=== PATIENT | female | born 1955 | race Caucasian/White ===

== ENCOUNTER → 2020-03-30 | Outpatient (CLI) | payer BC ==
--- NOTE | 2020-03-30 11:39 | US ---
EXAMINATION TYPE: US abdomen complete DATE OF EXAM: 03/30/2020 COMPARISON: NONE CLINICAL HISTORY: R10.84 ABDOMINAL PAIN. Abdomen pain, elevated liver enzymes, history of cholecystec malu EXAM MEASUREMENTS: Liver Length: 14.2 cm CBD: 0.4 cm Spleen: 9.7 cm Right Kidney: 9.7 x 4.9 x 4.2 cm Left Kidney: 10.3 x 5.1 x 4.4 cm Pancreas: visualized portions wnl, limited by overlying midline bowel gas Liver: mildly course echotexture Gallbladder: surgically absent Evidence for sonographic Collins's sign: no CBD: visualized portions wnl, limited by overlying bowel gas Spleen: wnl Right Kidney: wnl Left Kidney: wnl Upper IVC: wnl Abd Aorta: wnl The liver is mildly coarse. The intrahepatic portion of the IVC and proximal abdominal aorta are with in normal limits. Common bile duct is unremarkable. The visualized portions of the pancreas are steph ogenous. The spleen is unremarkable. Kidneys are symmetric and free of hydronephrosis. No renal le sions are seen. IMPRESSION: Mild hepatic steatosis suggested.
== END | disposition home or self-care (01) ==
LOC: RADUSWWP 10:33
PROVIDERS: ATTEND Internal Medicine
DX: R10.84 Generalized abdominal pain (principal); R94.5 Abnormal results of liver function studies
CPT/HCPCS: 76700

== ENCOUNTER 2021-06-10 09:59 | Day surgery (SDC) | payer BC ==
[2021-06-06 10:43] VITALS: BMI 28.7
[~2021-06-10 09:59] MED LIST: LACTATED RINGERS 1,000 ML IV SCH
[2021-06-10 10:30] VITALS: TEMP 98.4
[2021-06-10] MEDS ORDERED: LIDOCAINE 1% (10MG/ML) FOR IV START INTRADERMA ONE (10:38)
[2021-06-10] MEDS ORDERED: PROPOFOL 10 MG/ML 20 ML VIAL IV ONE (11:33)
--- NOTE | 2021-06-10 11:35 | P.GSHP ---
History of Present Illness H&P Date: 06/10/21 Chief Complaint: Screening colonoscopy This is 66-year-old female presents today for screening colonoscopy. Patient denies any significant GI complaints. Past Medical History Past Medical History: No Reported History History of Any Multi-Drug Resistant Organisms: None Reported Past Surgical History: Section, Cholecystectomy, Hysterectomy Additional Past Surgical History / Comment(s): COLONOSCOPY Past Anesthesia/Blood Transfusion Reactions: Postoperative Nausea & Vomiting (PONV) Smoking Status: Never smoker - Past Family History Mother Family Medical History: Cancer Brother(s) Family Medical History: Cancer Medications and Allergies Home Medications Medication Instructions Recorded Confirmed Type Omeprazole 20 mg PO DAILY 06/10/21 06/10/21 History Allergies Allergy/AdvReac Type Severity Reaction Status Date / Time No Known Allergies Allergy Verified 06/10/21 10:21 Surgical - Exam Vital Signs Temp Pulse Resp BP Pulse Ox 98.4 F 57 L 16 158/87 99 06/10/21 10:20 06/10/21 10:20 06/10/21 10:20 06/10/21 10:20 06/10/21 10:20 - General well developed, well nourished, no distress - Eyes PERRL - ENT normal pinna - Neck no masses - Respiratory normal expansion - Cardiovascular Rhythm: regular - Abdomen Abdomen: soft, non tender Assessment and Plan Assessment: We'll perform screening colonoscopy
--- NOTE | 2021-06-10 11:55 | P.OP ---
Date of Procedure: 06/10/21 Preoperative Diagnosis: Screening colonoscopy Postoperative Diagnosis: Diverticulosis Procedure(s) Performed: Colonoscopy Anesthesia: MAC Surgeon: Rafael Saldaña Pathology: none sent Condition: stable Disposition: PACU Description of Procedure: The patient's placed on the endoscopy table in the lateral position. She received IV sedation. Digital rectal exam was performed which revealed a few external hemorrhoids. The flexible colonoscope was then placed patient anus passed throughout the entire colon. The ileocecal valve was visualized. The cecum, ascending and transverse colon appeared normal. In the descending; there is mild diverticular changes. There was no evidence of diverticulitis. Scope was then brought back the rectum and this appeared normal. Scope withdrawn for patient.
[2021-06-10 12:14] VITALS: BP 163/75; PULSE 91; RESP 16
== END 2021-06-10 12:37 | disposition home or self-care (01) ==
LOC: ORWHC2ENDO 09:59
PROVIDERS: ATTEND Surgery
DX: Z12.11 Encounter for screening for malignant neoplasm of colon (principal); K57.30 Diverticulosis of large intestine without perforation or abscess without bleeding; K64.4 Residual hemorrhoidal skin tags; Z98.891 History of uterine scar from previous surgery; Z90.49 Acquired absence of other specified parts of digestive tract; Z90.710 Acquired absence of both cervix and uterus; Z98.890 Other specified postprocedural states; Z79.899 Other long term (current) drug therapy; K21.9 Gastro-esophageal reflux disease without esophagitis
CPT/HCPCS: J2704; G0121

== ENCOUNTER → 2021-08-14 | Outpatient (CLI) | payer BC ==
--- NOTE | 2021-08-14 20:46 | BD ---
EXAMINATION TYPE: Axial Bone Density DATE OF EXAM: 08/14/2021 COMPARISON: FIRST DEXA AT [facility] CLINICAL HISTORY: 66 years year old Female. ICD-10 CODE: Z78.0 Asymptomatic menopausal state Height: 59.5IN Weight: 147 FRAX RISK QUESTIONS: Secondary Osteoporosis: YES 3. Menopause before 45: YES RISK FACTORS HISTORY OF: Postmenopausal woman: YES MEDICATIONS: Additional Medications: REFLUX MED, Additional History: EXAM MEASUREMENTS: Bone mineral densitometry was performed using the Karmasphere System. Bone mineral density as measured about the Lumbar spine is: ----- L1-L4(G/cm2): 1.239 T Score Values are as follows: ----- L1: -0.6 ----- L2: 0.6 ----- L3: 0.6 ----- L4: 1.0 ----- L1-L4: 0.5 NEW Bone mineral density about the R hip (g/cm2): 0.842 Bone mineral density about the L hip (g/cm2): 0.836 T Score values are as follows: -----R Neck: -1.5 -----L Neck: -1.5 -----R Total: -1.3 -----L Total: -1.4 NEW FRAX%s: The graph provided illustrates a 8.7% chance for a major osteoporotic fx and a 0.9% chance fo r the hips probability for fx in 10 years time. IMPRESSION: Osteopenia (T Score between -2.5 and -1). There is slightly increased risk of fracture and the patient may be considered for treatment. Re-Screen 2-5 years. NOTE: T-SCORE=SD OF THE YOUNG ADULT MEAN.
--- NOTE | 2021-08-15 11:30 | MM ---
Reason for Exam: Screening (asymptomatic). Patient History: Menarche at age 15. First Full-Term at age 24. Hysterectomy at age 38. Postmenopausal. Niece had breast cancer. Risk Values: Marielena 5 year model risk: 1.4%. NCI Lifetime model risk: 5.8%. Prior Study Comparison: No prior studies available for comparison. Tissue Density: The breast tissue is heterogeneously dense. This may lower the sensitivity of mammography. Findings: Analyzed By CAD. There is suggestion of possible obscured near 2.0 cm mass in the posterior depth outer upper aspect left breast on background dense tissue. Follow-up advised. Overall Assessment: Incomplete: need additional imaging evaluation, BI-RAD 0 Management: Diagnostic Breast Ultrasound of the left breast. Targeted ultrasound left breast upper outer quadrant C Zone. Electronically signed and approved by: Froy Dotson M.D.
== END | disposition home or self-care (01) ==
LOC: RADMAMWWP 07:03
PROVIDERS: ATTEND Family Medicine
DX: Z12.31 Encounter for screening mammogram for malignant neoplasm of breast (principal); Z78.0 Asymptomatic menopausal state; M85.89 Other specified disorders of bone density and structure, multiple sites
CPT/HCPCS: 77067; 77080

== ENCOUNTER → 2021-08-22 | Outpatient (CLI) | payer BC ==
--- NOTE | 2021-08-22 08:00 | USB ---
Reason for Exam: Additional evaluation requested from abnormal screening. Patient History: Menarche at age 15. First Full-Term at age 24. Hysterectomy at age 38. Postmenopausal. Niece had breast cancer. Risk Values: Marielena 5 year model risk: 1.4%. NCI Lifetime model risk: 5.8%. Prior Study Comparison: 08/14/2021 Bilateral MG screening mammo w CAD, [facility]. Findings: The upper outer quadrant of the left breast, the axilla of the left breast and the retroareolar of the left breast were scanned. No solid or cystic masses are identified. Left axillary lymph node is identified without thickened cortex. Overall Assessment: Negative, BI-RAD 1 Management: Diagnostic Mammogram of the left breast in 6 months. A clinical breast exam by your physician is recommended on an annual basis and results should be correlated with mammographic findings. Electronically signed and approved by: Armando Pulido D.O. Radiologis
== END | disposition home or self-care (01) ==
LOC: RADUSWWP 07:11
PROVIDERS: ATTEND Family Medicine
DX: R92.8 Other abnormal and inconclusive findings on diagnostic imaging of breast (principal); Z78.0 Asymptomatic menopausal state; Z80.3 Family history of malignant neoplasm of breast

== ENCOUNTER 2022-08-14 15:46 | Observation (INO) | payer BC, MEDICARE ==
[2022-08-14 16:19] LABS: Basophils % (A) 0 %; Eosinophils # (A) 0.1 k/uL (0-0.7); Eosinophils % (A) 2 %; HCT 41.3 % (34.0-46.0); HGB 13.9 gm/dL (11.4-16.0); Lymphocytes # (A) 2.3 k/uL (1.0-4.8); Lymphocytes % (A) 31 %; MCH 31.8 pg (25.0-35.0); MCHC 33.6 g/dL (31.0-37.0); MCV 94.8 fL (80.0-100.0); Monocytes # (A) 0.4 k/uL (0-1.0); Monocytes % (A) 5 %; Neutrophils # (A) 4.5 k/uL (1.3-7.7); Neutrophils % (A) 61 %; Platelet Count 333 k/uL (150-450); RBC 4.36 m/uL (3.80-5.40); RDW 12.6 % (11.5-15.5); WBC 7.3 k/uL (3.8-10.6)
[2022-08-14 16:31] LABS: ALT 24 U/L (4-34); AST 25 U/L (14-36); African American GFR (CKD) 81 (>60 ml/min/1.73 sqM); Albumin 4.4 g/dL (3.5-5.0); Alkaline Phosphatase 82 U/L (38-126); Anion Gap 8 mmol/L; Blood Urea Nitrogen 16 mg/dL (7-17); Calcium 9.6 mg/dL (8.4-10.2); Carbon Dioxide 25 mmol/L (22-30); Chloride 104 mmol/L (98-107); Glucose 94 mg/dL (74-99); Magnesium 1.8 mg/dL (1.6-2.3); Non-African American GFR(CKD) 70 (>60 ml/min/1.73 sqM); Potassium 3.8 mmol/L (3.5-5.1); Sodium 137 mmol/L (137-145); Total Bilirubin 0.5 mg/dL (0.2-1.3); Total Protein 7.2 g/dL (6.3-8.2)
--- NOTE | 2022-08-14 16:37 | ED ---
General Adult HPI - General Chief complaint: Recheck/Abnormal Lab/Rx Stated complaint: abn EKG high blood pressure Time Seen by Provider: 08/14/22 15:55 Source: patient, RN notes reviewed, old records reviewed Mode of arrival: ambulatory Limitations: no limitations - History of Present Illness Initial comments: This is a 67-year-old female presents emergency Department because she went to her dentist today and the dentist told her blood pressure is high and they told to follow-up to primary medical care doctor they saw the primary medical care doctor and they decided because of high blood pressure and they did an EKG while the patient come to the emergency department. Patient states she has been having shortness of breath last few months and she states it's usually with exertion and she finishes because she's gained about 25 pounds in the last 6 months. Patient also states she retired recently and has been doing some walking and noticed her breath and sharp patient states she occasionally will have some sharp pain underneath her ribs bilaterally. Patient denies any recent fever chills or cough per patient states want to legs or pain in the calf. Patient denies taking any medications. Patient denies any anterior chest pain. Patient denies any back pain. Patient denies any history of diabetes hypertension or high cholesterol. Patient denies any smoking history - Related Data Home Medications Medication Instructions Recorded Confirmed Omeprazole 20 mg PO DAILY 06/10/21 08/14/22 Cholecalciferol [Vitamin D3 (25 25 mcg PO DAILY 08/14/22 08/14/22 Mcg = 1000 Iu)] Cyanocobalamin (Vitamin B-12) 1,000 mcg PO DAILY 08/14/22 08/14/22 [Vitamin B-12] Allergies Allergy/AdvReac Type Severity Reaction Status Date / Time No Known Allergies Allergy Verified 08/14/22 17:50 Review of Systems ROS Statement: Those systems with pertinent positive or pertinent negative responses have been documented in the HPI. ROS Other: All systems not noted in ROS Statement are negative. Past Medical History Past Medical History: No Reported History History of Any Multi-Drug Resistant Organisms: None Reported Past Surgical History: Section, Cholecystectomy, Hysterectomy Additional Past Surgical History / Comment(s): COLONOSCOPY Past Anesthesia/Blood Transfusion Reactions: Postoperative Nausea & Vomiting (PONV) Past Psychological History: No Psychological Hx Reported Smoking Status: Never smoker Past Alcohol Use History: Occasional Past Drug Use History: None Reported - Past Family History Mother Family Medical History: Cancer Brother(s) Family Medical History: Cancer General Exam - General Exam Comments Initial Comments: GENERAL: Patient is well-developed and well-nourished. Patient is nontoxic and well- hydrated and is in no acute distress. ENT: Neck is soft and supple. No significant lymphadenopathy is noted. Oropharynx is clear. Moist mucous membranes. Neck has full range of motion without eliciting any pain. EYES: The sclera were anicteric and conjunctiva were pink and moist. Extraocular movements were intact and pupils were equal round and reactive to light. Eyelids were unremarkable. PULMONARY: Unlabored respirations. Good breath sounds bilaterally. No audible rales rhonchi or wheezing was noted. CARDIOVASCULAR: There is a regular rate and rhythm without any murmurs gallops or rubs. ABDOMEN: Soft and nontender with normal bowel sounds. SKIN: Skin is clear with no lesions or rashes and otherwise unremarkable. NEUROLOGIC: Patient is alert and oriented x3. Cranial nerves II through XII are grossly intact. Motor and sensory are also intact. Normal speech, volume and content. Symmetrical smile. MUSCULOSKELETAL: Normal extremities with adequate strength and full range of motion. No lower extremity swelling or edema. No calf tenderness. LYMPHATICS: No significant lymphadenopathy is noted PSYCHIATRIC: Normal psychiatric evaluation. Limitations: no limitations Course Vital Signs 08/14/22 08/14/22 08/14/22 15:47 16:41 17:47 Temperature 98.2 F 98.7 F Pulse Rate 81 86 96 Respiratory 20 18 18 Rate Blood Pressure 190/123 196/109 196/127 O2 Sat by Pulse 98 96 96 Oximetry 08/14/22 08/14/22 08/14/22 18:07 18:30 19:00 Temperature Pulse Rate 80 100 90 Respiratory 17 19 19 Rate Blood Pressure 153/105 133/84 135/84 O2 Sat by Pulse 97 97 98 Oximetry 08/14/22 08/14/22 08/14/22 19:30 20:05 20:17 Temperature 98.6 F Pulse Rate 118 H 104 H 106 H Respiratory 22 16 Rate Blood Pressure 177/101 146/88 O2 Sat by Pulse 99 96 Oximetry 08/14/22 20:54 Temperature Pulse Rate 115 H Respiratory 18 Rate Blood Pressure 165/96 O2 Sat by Pulse 96 Oximetry Medical Decision Making - Medical Decision Making EKG was interpreted by myself. EKG shows sinus rhythm at 87 bpm SC interval Is a 70 QRS Is 94 QT Interval 345 QTC Is 389. Patient's EKG Shows No ST Segment Elevation A repeat EKG was done shows sinus rhythm at 92 bpm SC interval 142 QRS is 86 QT interval 356 QTC is 45. Patient has multiple PACs. No ST segment elevation Was pt. sent in by a medical professional or institution (, PA, CABLE WORKER HELPER, urgent care, hospital, or custodial...) When possible be specific @ -Patient was sent in by her primary medical care doctor Did you speak to anyone other than the patient for history (EMS, parent, family, police, friend...)? What history was obtained from this source @ -[No] Did you review nursing and triage notes (agree or disagree)? Why? @ -[I reviewed and agree with nursing and triage notes] Were old charts reviewed (outside hosp., previous admission, EMS record, old EKG, old radiological studies, urgent care reports/EKG's, custodial records)? Report findings @ -I reviewed prior x-rays on this patient Differential Diagnosis (chest pain, altered mental status, abdominal pain women, abdominal pain men, vaginal bleeding, weakness, fever, dyspnea, syncope, headache, dizziness, GI bleed, back pain, seizure, CVA, palpatations, mental health, musculoskeletal)? @ -Differential Dyspnea: Coronary syndrome, arrhythmia, tamponade, asthma, COPD, pulmonary embolism, pneumonia, pneumothorax, pulmonary effusion, anaphylaxis, diabetic ketoacidosis, flailed chest, pulmonary contusion, diaphragmatic rupture, anemia, neuromuscular, this is not meant to be an all-inclusive list. EKG interpreted by me (3pts min.). @ -[As above] X-rays interpreted by me (1pt min.). @ -Chest x-ray shows no acute abnormality CT interpreted by me (1pt min.). @ -CT of the chest shows no PE but does show some calcifications in the coronary arteries U/S interpreted by me (1pt. min.). @ -[None done] What testing was considered but not performed or refused? (CT, X-rays, U/S, labs)? Why? @ -[None] What meds were considered but not given or refused? Why? @ -[None] Did you discuss the management of the patient with other professionals (professionals i.e. , PA, CABLE WORKER HELPER, lab, RT, psych nurse, health care social worker, rivet hole puncher, teacher, deck officer, case sealer)? Give summary @ -I spoke with Dr. Castellon he agreed to admit the patient admitted the patient Was smoking cessation discussed for >3mins.? @ -[No] Was critical care preformed (if so, how long)? @ -[No] Were there social determinants of health that impacted care today? How? (Homelessness, low income, unemployed, alcoholism, drug addiction, transportation, low edu. Level, literacy, decrease access to med. care, half-way, rehab)? @ -[No] Was there de-escalation of care discussed even if they declined (Discuss DNR or withdrawal of care, Hospice)? DNR status @ -[No] What co-morbidities impacted this encounter? (DM, HTN, Smoking, COPD, CAD, Cancer, CVA, ARF, Chemo, Hep., AIDS, mental health diagnosis, sleep apnea, morbid obesity)? @ -[None] Was patient admitted / discharged? Hospital course, mention meds given and route, prescriptions, significant lab abnormalities, going to OR and other pertinent info. @ -Patient was seen in emergency department given hydralazine and apart her blood pressure down however any time the patient got up out of bed and walked more than 5 feet she was flushed red tachycardic in the 120s and her blood pressure elevated. Patient also felt very short of breath with these episodes and it occurred multiple times in the emergency department was at this point in time that I felt something else might be going on that she needed to see global clinical leader and veterinary poultry inspector Dr. Castellon was in agreement I admitted the patient Undiagnosed new problem with uncertain prognosis? @ -[No] Drug Therapy requiring intensive monitoring for toxicity (Heparin, Nitro, Insulin, Cardizem)? @ -[No] Were any procedures done? @ -[No] Diagnosis/symptom? @ -Dyspnea Acute, or Chronic, or Acute on Chronic? @ -Acute Uncomplicated (without systemic symptoms) or Complicated (systemic symptoms)? @ -Complicated Side effects of treatment? @ -[No] Exacerbation, Progression, or Severe Exacerbation? @ -[No] Poses a threat to life or bodily function? How? (Chest pain, [place], [place], pneumonia, PE, COPD, DKA, ARF, appy, cholecystitis, CVA, Diverticulitis, Homicidal, Suicidal, threat to staff... and all critical care pts) @ -Yes this could lead to hypoxia and end organ dysfunction Diagnosis/symptom? @ -Tachycardia Acute, or Chronic, or Acute on Chronic? @ -Acute Uncomplicated (without systemic symptoms) or Complicated (systemic symptoms)? @ -Complicated Side effects of treatment? @ -[none] Exacerbation, Progression, or Severe Exacerbation] @ -[no] Poses a threat to life or bodily function? @ -[no] Diagnosis/symptom? @ -Hypertension Acute, or Chronic, or Acute on Chronic? @ -Acute Uncomplicated (without systemic symptoms) or Complicated (systemic symptoms)? @ -Complicated Side effects of treatment? @ -[none] Exacerbation, Progression, or Severe Exacerbation] @ -[no] Poses a threat to life or bodily function? @ -Yes this could lead to a hypertensive crisis and morbidity or mortality - Lab Data Result diagrams: 08/14/22 16:14 08/14/22 16:14 Lab Results 08/14/22 08/14/22 08/14/22 Range/Units 16:14 16:14 16:14 WBC 7.3 (3.8-10.6) k/uL RBC 4.36 (3.80-5.40) m/uL Hgb 13.9 (11.4-16.0) gm/dL Hct 41.3 (34.0-46.0) % MCV 94.8 (80.0-100.0) fL MCH 31.8 (25.0-35.0) pg MCHC 33.6 (31.0-37.0) g/dL RDW 12.6 (11.5-15.5) % Plt Count 333 (150-450) k/uL MPV 7.0 Neutrophils % 61 % Lymphocytes % 31 % Monocytes % 5 % Eosinophils % 2 % Basophils % 0 % Neutrophils # 4.5 (1.3-7.7) k/uL Lymphocytes # 2.3 (1.0-4.8) k/uL Monocytes # 0.4 (0-1.0) k/uL Eosinophils # 0.1 (0-0.7) k/uL Basophils # 0.0 (0-0.2) k/uL PT 10.0 (9.0-12.0) sec INR 0.9 (<1.2) APTT 21.8 L (22.0-30.0) sec D-Dimer (<0.60) mg/L FEU Sodium 137 (137-145) mmol/L Potassium 3.8 (3.5-5.1) mmol/L Chloride 104 (98-107) mmol/L Carbon Dioxide 25 (22-30) mmol/L Anion Gap 8 mmol/L BUN 16 (7-17) mg/dL Creatinine 0.87 (0.52-1.04) mg/dL Est GFR (CKD-EPI)AfAm 81 (>60 ml/min/1.73 sqM) Est GFR (CKD-EPI)NonAf 70 (>60 ml/min/1.73 sqM) Glucose 94 (74-99) mg/dL Calcium 9.6 (8.4-10.2) mg/dL Magnesium 1.8 (1.6-2.3) mg/dL Total Bilirubin 0.5 (0.2-1.3) mg/dL AST 25 (14-36) U/L ALT 24 (4-34) U/L Alkaline Phosphatase 82 (38-126) U/L Troponin I (0.000-0.034) ng/mL Total Protein 7.2 (6.3-8.2) g/dL Albumin 4.4 (3.5-5.0) g/dL TSH (0.465-4.680) mIU/L Urine Color Urine Appearance (Clear) Urine pH (5.0-8.0) Ur Specific Santa (1.001-1.035) Urine Protein (Negative) Urine Glucose (UA) (Negative) Urine Ketones (Negative) Urine Blood (Negative) Urine Nitrite (Negative) Urine Bilirubin (Negative) Urine Urobilinogen (<2.0) mg/dL Ur Leukocyte Esterase (Negative) 08/14/22 08/14/22 08/14/22 Range/Units 16:14 16:14 16:14 WBC (3.8-10.6) k/uL RBC (3.80-5.40) m/uL Hgb (11.4-16.0) gm/dL Hct (34.0-46.0) % MCV (80.0-100.0) fL MCH (25.0-35.0) pg MCHC (31.0-37.0) g/dL RDW (11.5-15.5) % Plt Count (150-450) k/uL MPV Neutrophils % % Lymphocytes % % Monocytes % % Eosinophils % % Basophils % % Neutrophils # (1.3-7.7) k/uL Lymphocytes # (1.0-4.8) k/uL Monocytes # (0-1.0) k/uL Eosinophils # (0-0.7) k/uL Basophils # (0-0.2) k/uL PT (9.0-12.0) sec INR (<1.2) APTT (22.0-30.0) sec D-Dimer 0.29 (<0.60) mg/L FEU Sodium (137-145) mmol/L Potassium (3.5-5.1) mmol/L Chloride (98-107) mmol/L Carbon Dioxide (22-30) mmol/L Anion Gap mmol/L BUN (7-17) mg/dL Creatinine (0.52-1.04) mg/dL Est GFR (CKD-EPI)AfAm (>60 ml/min/1.73 sqM) Est GFR (CKD-EPI)NonAf (>60 ml/min/1.73 sqM) Glucose (74-99) mg/dL Calcium (8.4-10.2) mg/dL Magnesium (1.6-2.3) mg/dL Total Bilirubin (0.2-1.3) mg/dL AST (14-36) U/L ALT (4-34) U/L Alkaline Phosphatase (38-126) U/L Troponin I <0.012 (0.000-0.034) ng/mL Total Protein (6.3-8.2) g/dL Albumin (3.5-5.0) g/dL TSH 1.850 (0.465-4.680) mIU/L Urine Color Urine Appearance (Clear) Urine pH (5.0-8.0) Ur Specific Santa (1.001-1.035) Urine Protein (Negative) Urine Glucose (UA) (Negative) Urine Ketones (Negative) Urine Blood (Negative) Urine Nitrite (Negative) Urine Bilirubin (Negative) Urine Urobilinogen (<2.0) mg/dL Ur Leukocyte Esterase (Negative) 08/14/22 Range/Units 20:42 WBC (3.8-10.6) k/uL RBC (3.80-5.40) m/uL Hgb (11.4-16.0) gm/dL Hct (34.0-46.0) % MCV (80.0-100.0) fL MCH (25.0-35.0) pg MCHC (31.0-37.0) g/dL RDW (11.5-15.5) % Plt Count (150-450) k/uL MPV Neutrophils % % Lymphocytes % % Monocytes % % Eosinophils % % Basophils % % Neutrophils # (1.3-7.7) k/uL Lymphocytes # (1.0-4.8) k/uL Monocytes # (0-1.0) k/uL Eosinophils # (0-0.7) k/uL Basophils # (0-0.2) k/uL PT (9.0-12.0) sec INR (<1.2) APTT (22.0-30.0) sec D-Dimer (<0.60) mg/L FEU Sodium (137-145) mmol/L Potassium (3.5-5.1) mmol/L Chloride (98-107) mmol/L Carbon Dioxide (22-30) mmol/L Anion Gap mmol/L BUN (7-17) mg/dL Creatinine (0.52-1.04) mg/dL Est GFR (CKD-EPI)AfAm (>60 ml/min/1.73 sqM) Est GFR (CKD-EPI)NonAf (>60 ml/min/1.73 sqM) Glucose (74-99) mg/dL Calcium (8.4-10.2) mg/dL Magnesium (1.6-2.3) mg/dL Total Bilirubin (0.2-1.3) mg/dL AST (14-36) U/L ALT (4-34) U/L Alkaline Phosphatase (38-126) U/L Troponin I (0.000-0.034) ng/mL Total Protein (6.3-8.2) g/dL Albumin (3.5-5.0) g/dL TSH (0.465-4.680) mIU/L Urine Color Light Yellow Urine Appearance Clear (Clear) Urine pH 6.0 (5.0-8.0) Ur Specific Santa 1.018 (1.001-1.035) Urine Protein Negative (Negative) Urine Glucose (UA) Negative (Negative) Urine Ketones 1+ H (Negative) Urine Blood Negative (Negative) Urine Nitrite Negative (Negative) Urine Bilirubin Negative (Negative) Urine Urobilinogen <2.0 (<2.0) mg/dL Ur Leukocyte Esterase Negative (Negative) Disposition Clinical Impression: Dyspnea, Hypertensive urgency, Tachycardia Disposition: ADMITTED IP TO THIS HOSP Referrals: Holly Guillaume MD [Primary Care Provider] - 1-2 days Time of Disposition: 21:22
[2022-08-14 16:41] LABS: INR 0.9 (<1.2); Partial Thromboplastin Time 21.8 sec (22.0-30.0)
[2022-08-14] MEDS ORDERED: hydrALAZINE HCL 20 MG/ML 1 ML VIAL IVP STA (17:51)
[2022-08-14] MEDS ORDERED: LORazepam 2 MG/ML INJ IV STA (19:55)
--- NOTE | 2022-08-14 20:34 | XR ---
EXAMINATION: XR chest 2V: 08/14/2022 7:22 PM CLINICAL INDICATION: Difficulty breathing TECHNIQUE: Departmental protocol COMPARISON: None FINDINGS: The lungs are clear. The pleural spaces are negative. EKG leads. The cardiac silhouette is not enlarged. The remainder of the mediastinal silhouette is unr emarkable. The skeletal structures and soft tissues are negative for acute findings. IMPRESSION: No acute radiographic process.
--- NOTE | 2022-08-14 21:01 | CT ---
EXAMINATION TYPE: CT chest angio for PE DATE OF EXAM: 08/14/2022 COMPARISON: NONE HISTORY: Shortness of breath. CT DLP: 377.5 mGycm. Automated Exposure Control for Dose Reduction was Utilized. CONTRAST: CTA scan of the thorax is performed with IV Contrast, patient injected with 100 cc mL of Is ovue 370. MIP Images are created on CT scanner and reviewed. 3D reconstructed images are created on an independent workstation and reviewed. FINDINGS: LUNGS: The airways are unremarkable. The lungs are well-expanded and clear. MEDIASTINUM: There is satisfactory enhancement of the pulmonary artery and its branches, and there is no CT evidence for pulmonary embolism. There is no acute aortic process. The aorta is moderately to rtuous and the ascending aorta is top normal in caliber. There are no greater than 1 cm hilar or medi astinal lymph nodes. No cardiomegaly. Coronary calcifications noted. No pericardial effusion. OSSEOUS STRUCTURES: No focal skeletal findings. OTHER: No additional significant abnormality is seen. IMPRESSION: 1. Negative for pulmonary embolism. 2. Lungs are well-expanded and clear. 3. Coronary calcifications noted.
[2022-08-14 21:02] LABS: Appearance,Urine Clear (Clear); Bilirubin,Urine Negative (Negative); Blood,Urine Negative (Negative); Color,Urine Light Yellow; Glucose,Urine (UA) Negative (Negative); Ketones,Urine 1+ (Negative); Leukocyte Esterase,Urine Negative (Negative); Nitrite,Urine Negative (Negative); Protein,Urine Negative (Negative); Specific Gravity,Urine 1.018 (1.001-1.035); Urobilinogen,Urine <2.0 mg/dL (<2.0)
[2022-08-14] MEDS ORDERED: NITROGLYCERIN SL TABS 0.4 MG TAB SUBLINGUAL PRN (21:24)
[2022-08-15] MEDS ORDERED: ASPIRIN 325 MG TAB PO SCH (09:00)
--- NOTE | 2022-08-15 09:59 | CA ---
Transthoracic Echo Report Name: Luann Ruiz Age: 67 Gender: F : 1955 Exam Date: 08/15/2022 07:42 Exam Location: [facility] Ht (in): 60 Wt (lb): 165 Ordering Physician: Dominick Mulligan MD Attending/Referring Phys: Cdl A Driver Sailaja Marks [facility] Procedure CPT: Indications: shortness of breath, tachycardia Cardiac Hx: Technical Quality: Technically difficult study Contrast 1: Total Dose (mL): Contrast 2: Total Dose (mL): MEASUREMENTS (Male / Female) Normal Values 2D ECHO LV Diastolic Diameter PLAX 4.7 cm 4.2 - 5.9 / 3.9 - 5.3 cm LV Systolic Diameter PLAX 3.0 cm IVS Diastolic Thickness 0.9 cm 0.6 - 1.0 / 0.6 - 0.9 cm LVPW Diastolic Thickness 0.8 cm 0.6 - 1.0 / 0.6 - 0.9 cm LV Relative Wall Thickness 0.4 M-MODE Aortic Root Diameter MM 2.7 cm LA Systolic Diameter MM 2.6 cm LA Ao Ratio MM 1.0 AV Cusp Separation MM 1.5 cm DOPPLER AV Peak Velocity 114.5 cm/s AV Peak Gradient 5.2 mmHg AV Mean Velocity 67.2 cm/s AV Mean Gradient 2.2 mmHg AV Velocity Time Integral 17.0 cm LVOT Peak Velocity 83.5 cm/s LVOT Peak Gradient 2.8 mmHg LVOT Velocity Time Integral 14.7 cm Mitral E Point Velocity 49.4 cm/s Mitral A Point Velocity 63.3 cm/s Mitral E to A Ratio 0.8 MV Deceleration Time 183.6 ms LV E' Lateral Velocity 5.3 cm/s Mitral E to LV E' Lateral Ratio 9.3 LV E' Septal Velocity 6.5 cm/s Mitral E to LV E' Septal Ratio 7.6 TR Peak Velocity 193.1 cm/s TR Peak Gradient 14.9 mmHg Right Atrial Pressure 3.0 mmHg Pulmonary Artery Systolic Pressu 17.9 mmHg Right Ventricular Systolic Press 17.9 mmHg FINDINGS Left Ventricle Normal Left ventricular size, wall thickness, systolic function with no obvious regional wall motion abnormalities. Left ventricular ejection fraction is estimated at 55-60 %. Right Ventricle Right ventricle not well visualized. Right Atrium Right atrium not well visualized. Left Atrium Left atrium not well visualized. Mitral Valve Structurally normal mitral valve. No mitral stenosis, regurgitation or prolapse. Aortic Valve Trileaflet aortic valve. No aortic valve stenosis or regurgitation. Tricuspid Valve Structurally normal tricuspid valve. Trace tricuspid regurgitation. Pulmonic Valve Structurally normal pulmonic valve. No pulmonic regurgitation. Pericardium No pericardial effusion. Aorta Normal size aortic root and proximal ascending aorta. CONCLUSIONS Technically difficult study. 1. Normal ventricle size and systolic function 2. Suboptimal Doppler study with trace tricuspid regurgitation and no evidence of pulmonary hypertension Previewed by: Dr. Colby King MD (Electronically Signed) Final Date: 15 August 2022 09:58
--- NOTE | 2022-08-15 10:27 | P.HPIM ---
History of Present Illness H&P Date: 08/15/22 Chief Complaint: Hypertensive urgency and shortness breath This is a 67-year-old female patient of Dr. Guillaume who presented with concerns of shortness of breath and hypertensive urgency. Patient reports that over the past year she's noticed she's become increasingly short of breath. Patient apparently went to dentist yesterday was told her blood pressure was very high. Patient then proceeded to call PCP who recommended her coming the ER for further evaluation. Patient also reports that she's had episodes of standing up too quickly and passing out. Patient denies any significant medical history. Denies smoking. According to patient she had EKG done in Dr. guillaume's office which was abnormal. Repeat was completed here to be reviewed per cardiology. Chest x-ray showing no acute radiographic process. Chest CTA performed showing negative for PE lungs are well expanded and clear cornea calcination's noted. Initial blood pressure on arrival 190/123. Patient was given IV hydralazine. At this time cardiology and pulmonary service is consulted 2-D echo has been ordered. Will also order carotid Doppler due to patient's statement of passing out when standing up. Troponins negative 3. Current vital signs temp 97.9, heart rate 69, respiratory rate 18, blood pressure 140/93 pulse ox 96% on room air Review of Systems Please refer to HPI otherwise unremarkable Past Medical History Past Medical History: No Reported History History of Any Multi-Drug Resistant Organisms: None Reported Past Surgical History: Section, Cholecystectomy, Hysterectomy Additional Past Surgical History / Comment(s): COLONOSCOPY Past Anesthesia/Blood Transfusion Reactions: Postoperative Nausea & Vomiting (PONV) Past Psychological History: No Psychological Hx Reported Smoking Status: Never smoker Past Alcohol Use History: Occasional Past Drug Use History: None Reported - Past Family History Mother Family Medical History: Cancer Brother(s) Family Medical History: Cancer Medications and Allergies Home Medications Medication Instructions Recorded Confirmed Type Omeprazole 20 mg PO DAILY 06/10/21 08/14/22 History Cholecalciferol [Vitamin D3 (25 25 mcg PO DAILY 08/14/22 08/14/22 History Mcg = 1000 Iu)] Cyanocobalamin (Vitamin B-12) 1,000 mcg PO DAILY 08/14/22 08/14/22 History [Vitamin B-12] Allergies Allergy/AdvReac Type Severity Reaction Status Date / Time No Known Allergies Allergy Verified 08/14/22 17:50 Physical Exam Vitals: Vital Signs Temp Pulse Pulse Resp BP BP Pulse Ox 08/15/22 08:12 97.9 F 69 18 140/93 96 08/15/22 04:58 98 F 65 20 136/83 97 08/15/22 01:00 87 16 110/75 98 08/15/22 00:00 90 16 113/73 97 08/14/22 23:00 101 H 18 108/74 98 08/14/22 22:00 111 H 18 125/86 98 08/14/22 20:54 115 H 18 165/96 96 08/14/22 20:17 106 H 08/14/22 20:05 104 H 16 146/88 96 08/14/22 19:30 98.6 F 118 H 22 177/101 99 08/14/22 19:00 90 19 135/84 98 08/14/22 18:30 100 19 133/84 97 08/14/22 18:07 80 17 153/105 97 08/14/22 17:47 96 18 196/127 96 08/14/22 16:41 98.7 F 86 18 196/109 96 08/14/22 15:47 98.2 F 81 20 190/123 98 Intake and Output 08/14/22 08/15/22 08/15/22 22:59 06:59 14:59 Intake Total 10 Balance 10 Intake: IV 10 Invasive Line 1 10 Other: Weight 75.07 kg Head normocephalic Neck supple Lungs clear to auscultation bilaterally no wheezing or crackles Heart regular rate and rhythm S1-S2, no rub or gallop Abdomen is soft nontender nondistended positive bowel sounds no hepatosplenomegaly Extremities no edema Neuro alert and orientated to 3 Results CBC & Chem 7: 08/14/22 16:14 08/14/22 16:14 Labs: Abnormal Lab Results - Last 24 Hours (Table) 08/14/22 08/14/22 Range/Units 16:14 20:42 APTT 21.8 L (22.0-30.0) sec Urine Ketones 1+ H (Negative) Assessment and Plan Assessment: 1. Hypertensive urgency 2. Dyspnea 3. Episodes of syncope 4. History of cholecystectomy At this time cardiology and pulmonary service is consulted 2-D echo ordered Carotid Doppler ordered Hydralazine when necessary ordered Time with Patient: Greater than 30 (Greater than 60% of the total time spent in counseling and coordination of care)
--- NOTE | 2022-08-15 11:12 | P.CNPUL ---
History of Present Illness Consult date: 08/15/22 Requesting physician: Arianne Castellon Reason for consult: dyspnea Chief complaint: Shortness of breath History of present illness: This is a very pleasant 67-year-old female patient with a known history of gastroesophageal reflux disease, obesity with recent 25 pound weight gain, rare smoking history who has been having shortness of breath for approximately one year now. Most recently her dyspnea on exertion has been increasing. She was seen by her PCP after being at the dentist who found her blood pressure to be too high and she was instructed to come here to the emergency room. EKG revea led sinus rhythm with nonspecific ST and T wave abnormalities. Chest x-ray revealed no acute pulmonary process. CT angiogram ruled out pulmonary embolism. Lung cespedes were clear bilaterally. Echocardiogram reveals normal left ventricular size and systolic function with ejection fraction 55-60%. No significant valvular abnormalities. No evidence of pulmonary hypertension. White count 7.3. Hemoglobin 13.9. Platelets 333. D-dimer 0.29. Sodium 137. Potassium 3.8. Bicarb 25. BUN 16. Creatinine 0.87. Troponins negative 3. Urinalysis clean. TSH 1.85. She is seen today in consultation in the emergency department. Sitting up in the stretcher. Awake and alert in no acute distress. She is comfortable at rest. Maintaining O2 saturations in the mid to upper 90s on room air. She's been afebrile. Blood pressure under better control. No cough or congestion. No fever or chills. No hemoptysis. Review of Systems REVIEW OF SYSTEMS: CONSTITUTIONAL: Denies any recent significant weight loss or weight gain. EYES: Denies change in vision. EARS, NOSE, MOUTH, THROAT: Denies headaches, denies sore throat. CARDIOVASCULAR: Denies chest pain, palpitations or syncopal episodes. RESPIRATORY: Positive for shortness of breath, no cough, congestion or hemopt ysis. GASTROINTESTINAL: Denies change in appetite, denies abdominal pain GENITOURINARY: Denies hematuria, denies infections. MUSKULOSKELETAL: Denies pain, denies swelling. INTEGUMENTARY: Denies rash, denies eczema. NEUROLOGICAL: Denies recent memory loss, no recent seizure activity. PSYCHIATRIC: Denies anxiety, denies depression. HEMATOLOGIC/LYMPHATIC: Denies anemia, denies enlarged lymph nodes. s Past Medical History Past Medical History: No Reported History History of Any Multi-Drug Resistant Organisms: None Reported Past Surgical History: Section, Cholecystectomy, Hysterectomy Additional Past Surgical History / Comment(s): COLONOSCOPY Past Anesthesia/Blood Transfusion Reactions: Postoperative Nausea & Vomiting (PONV) Past Psychological History: No Psychological Hx Reported Smoking Status: Never smoker Past Alcohol Use History: Occasional Past Drug Use History: None Reported - Past Family History Mother Family Medical History: Cancer Brother(s) Family Medical History: Cancer Medications and Allergies Home Medications Medication Instructions Recorded Confirmed Type Omeprazole 20 mg PO DAILY 06/10/21 08/14/22 History Cholecalciferol [Vitamin D3 (25 25 mcg PO DAILY 08/14/22 08/14/22 History Mcg = 1000 Iu)] Cyanocobalamin (Vitamin B-12) 1,000 mcg PO DAILY 08/14/22 08/14/22 History [Vitamin B-12] Allergies Allergy/AdvReac Type Severity Reaction Status Date / Time No Known Allergies Allergy Verified 08/14/22 17:50 Physical Exam Vitals: Vital Signs Temp Pulse Pulse Resp BP BP Pulse Ox 08/15/22 08:12 97.9 F 69 18 140/93 96 08/15/22 04:58 98 F 65 20 136/83 97 08/15/22 01:00 87 16 110/75 98 08/15/22 00:00 90 16 113/73 97 08/14/22 23:00 101 H 18 108/74 98 08/14/22 22:00 111 H 18 125/86 98 08/14/22 20:54 115 H 18 165/96 96 08/14/22 20:17 106 H 08/14/22 20:05 104 H 16 146/88 96 08/14/22 19:30 98.6 F 118 H 22 177/101 99 08/14/22 19:00 90 19 135/84 98 08/14/22 18:30 100 19 133/84 97 08/14/22 18:07 80 17 153/105 97 08/14/22 17:47 96 18 196/127 96 08/14/22 16:41 98.7 F 86 18 196/109 96 08/14/22 15:47 98.2 F 81 20 190/123 98 Intake and Output 08/14/22 08/15/22 08/15/22 22:59 06:59 14:59 Intake Total 10 Balance 10 Intake: IV 10 Invasive Line 1 10 Other: Weight 75.07 kg GENERAL EXAM: Alert, very pleasant 67-year-old female, on room air, comfortable in no apparent distress. HEAD: Normocephalic. EYES: Normal reaction of pupils, equal size. NOSE: Clear with pink turbinates. THROAT: No erythema or exudates. NECK: No masses, no JVD. CHEST: No chest wall deformity. LUNGS: Equal air entry with no crackles, wheeze, rhonchi or dullness. CVS: S1 and S2 normal with no audible murmur, regular rhythm. ABDOMEN: No hepatosplenomegaly, normal bowel sounds, no guarding or rigidity. SPINE: No scoliosis or deformity SKIN: No rashes CENTRAL NERVOUS SYSTEM: No focal deficits, tone is normal in all 4 extremities. EXTREMITIES: There is no peripheral edema. No clubbing, no cyanosis. Peripheral pulses are intact. Results - Laboratory Findings CBC and BMP: 08/14/22 16:14 08/14/22 16:14 PT/INR, D-dimer PT 10.0 sec (9.0-12.0) 08/14/22 16:14 INR 0.9 (<1.2) 08/14/22 16:14 D-Dimer 0.29 mg/L FEU (<0.60) 08/14/22 16:14 Abnormal lab findings: Abnormal Labs 08/14/22 08/14/22 16:14 20:42 APTT 21.8 L Urine Ketones 1+ H - Diagnostic Findings Chest x-ray: image reviewed CT scan - chest: image reviewed Assessment and Plan Assessment: Dyspnea on exertion of unclear etiology, chest x-ray and CT angiogram within normal limits. Echocardiogram within normal limits. Suspect secondary to hype rtension and/or weight gain, deconditioning Obesity with a recent 25 pound weight gain Nonsmoker History of gastroesophageal reflux disease Plan: The patient was seen and evaluated CT angiogram, chest x-ray, echocardiogram, labs and medications reviewed No clear explanation for the patient's dyspnea on exertion Suspect secondary to her hypertension and weight gain/deconditioning Would benefit from an outpatient workup including full pulmonary function testing We will continue to follow and make further recommendations based on her clinical status I have personally seen and examined the patient, performed the documentation and the assessment and plan as written. Number of minutes spent on the visit: 20.
[2022-08-15] MEDS ORDERED: amLODIPine 5 MG TAB PO SCH (11:30)
--- NOTE | 2022-08-15 11:36 | P.CRDCN ---
History of Present Illness History of present illness: HISTORY OF PRESENT ILLNESS: This is a 67-year-old female with no significant past medical history. Patient does not follow with a reed dipper. We have been asked to see the patient in consultation for hypertension. Patient examined at the bedside. Patient states that yesterday she was at her dentist for routine cleaning when she was found to have elevated blood pressures with a systolic in the 190s. She was told to call her primary care physician. She states she notified her primary care physician and she went into the office to be evaluated and they did an EKG which appeared to be abnormal and sent her to the hospital for further evaluation. The patient was found to have elevated blood pressures upon arrival. She received a one- time dose of IV hydralazine yesterday evening. Her blood pressures haven't well-controlled since then. She denies any previous history of hypertension. The patient denies a history of diabetes or hyperlipidemia. She states that she has been feeling short of breath for the past 6-12 months. She reports her shortness of breath is mostly with exertion. She reports getting pains in her chest occasionally which she describes as a "charley horse". She reports having intermittent pains down her right arm as well. She reports a weight gain of approximately 20 pounds recently. She also reports frequent dizziness upon standing. She reports that she fell 2 weeks ago but states she does not think that she lost consciousness. She does report having multiple falls over the past year that she believes are secondary to her dizziness. She states that she has never lost consciousness during these episodes. * EKG reveals sinus mechanism with T-wave inversions in inferior leads. Low voltage QRS. Repeat EKG reveals sinus mechanism with T-wave inversions in inferior leads and lateral leads. * Chest xray negative for acute process * Chest CTA: Negative for PE * Laboratory data: W BC 7.3. Hemoglobin 13.9. Platelet count 333. D-dimer 0.29. Sodium 137. Potassium 3.8. BUN 16. Creatinine 0.87. Troponin negati ve 3. TSH 1.850. * Current home cardiac medications include none * Most recent echocardiogram obtained ejection fraction 55-60% REVIEW OF SYSTEMS: At the time of my exam: CONSTITUTIONAL: Denies fever or chills. HEENT: Denies blurred vision, vision changes, or eye pain. Denies hemoptysis CARDIOVASCULAR: Denies chest pain. Denies orthopnea. Denies PND. Denies palpi tations RESPIRATORY: Denies shortness of breath. GASTROINTESTINAL: Denies abdominal pain. Denies nausea or vomiting. HEMATOLOGIC: Denies bleeding disorders. GENITOURINARY: Denies any blood in urine. SKIN: Denies pruitis. Denies rash. PHYSICAL EXAM: VITAL SIGNS: Reviewed. GENERAL: Well-developed in no acute distress. HEENT: Head is normocephalic. Pupils are equal, round. Sclerae anicteric. Mucous membranes of the mouth are moist. Neck supple. No JVD or thyromegaly LUNGS: Respirations even and unlabored. Lungs essentially clear to auscultation bilaterally. HEART: Regular rate and rhythm. S1 and S2 heard. ABDOMEN: Soft. Nondistended. Nontender. EXTREMITIES: Normal range of motion. No clubbing or cyanosis. Peripheral pulses intact. No lower extremity edema NEUROLOGIC: Awake and alert. Oriented x 3. ASSESSMENT: Hypertension Abnormal EKG with T-wave inversions in inferior and lateral leads Multiple episodes of falls secondary to dizziness, per patient, no evidence of syncope Intermediate episodes of chest discomfort 6 months Shortness of breath 6-12 months Recent weight gain of 20 pounds PLAN: 2-D echo obtained and reviewed Patient has been started on amlodipine per her primary physician Obtain stress echocardiogram to assess for ischemia Continue to monitor blood pressure Further recommendations pending patient course Nurse practitioner note has been reviewed by physician. Signing provider agrees with the documented findings, assessment, and plan of care. Past Medical History Past Medical History: No Reported History History of Any Multi-Drug Resistant Organisms: None Reported Past Surgical History: Section, Cholecystectomy, Hysterectomy Additional Past Surgical History / Comment(s): COLONOSCOPY Past Anesthesia/Blood Transfusion Reactions: Postoperative Nausea & Vomiting (PONV) Past Psychological History: No Psychological Hx Reported Smoking Status: Never smoker Past Alcohol Use History: Occasional Past Drug Use History: None Reported - Past Family History Mother Family Medical History: Cancer Brother(s) Family Medical History: Cancer Medications and Allergies Home Medications Medication Instructions Recorded Confirmed Type Omeprazole 20 mg PO DAILY 06/10/21 08/14/22 History Cholecalciferol [Vitamin D3 (25 25 mcg PO DAILY 08/14/22 08/14/22 History Mcg = 1000 Iu)] Cyanocobalamin (Vitamin B-12) 1,000 mcg PO DAILY 08/14/22 08/14/22 History [Vitamin B-12] Allergies Allergy/AdvReac Type Severity Reaction Status Date / Time No Known Allergies Allergy Verified 08/14/22 17:50 Physical Exam Vitals: Vital Signs Temp Pulse Pulse Resp BP BP Pulse Ox 08/15/22 08:12 97.9 F 69 18 140/93 96 08/15/22 04:58 98 F 65 20 136/83 97 08/15/22 01:00 87 16 110/75 98 08/15/22 00:00 90 16 113/73 97 08/14/22 23:00 101 H 18 108/74 98 08/14/22 22:00 111 H 18 125/86 98 08/14/22 20:54 115 H 18 165/96 96 08/14/22 20:17 106 H 08/14/22 20:05 104 H 16 146/88 96 08/14/22 19:30 98.6 F 118 H 22 177/101 99 08/14/22 19:00 90 19 135/84 98 08/14/22 18:30 100 19 133/84 97 08/14/22 18:07 80 17 153/105 97 08/14/22 17:47 96 18 196/127 96 08/14/22 16:41 98.7 F 86 18 196/109 96 08/14/22 15:47 98.2 F 81 20 190/123 98 Intake and Output 08/14/22 08/15/22 08/15/22 22:59 06:59 14:59 Intake Total 10 Balance 10 Intake: IV 10 Invasive Line 1 10 Other: Weight 75.07 kg Results 08/14/22 16:14 08/14/22 16:14 Cardiac Enzymes 08/14/22 08/14/22 08/14/22 Range/Units 16:14 16:14 22:08 AST 25 (14-36) U/L Troponin I <0.012 0.018 (0.000-0.034) ng/mL 08/15/22 Range/Units 00:00 AST (14-36) U/L Troponin I 0.013 (0.000-0.034) ng/mL Coagulation 08/14/22 Range/Units 16:14 PT 10.0 (9.0-12.0) sec APTT 21.8 L (22.0-30.0) sec CBC 08/14/22 Range/Units 16:14 WBC 7.3 (3.8-10.6) k/uL RBC 4.36 (3.80-5.40) m/uL Hgb 13.9 (11.4-16.0) gm/dL Hct 41.3 (34.0-46.0) % Plt Count 333 (150-450) k/uL Comprehensive Metabolic Panel 08/14/22 Range/Units 16:14 Sodium 137 (137-145) mmol/L Potassium 3.8 (3.5-5.1) mmol/L Chloride 104 (98-107) mmol/L Carbon Dioxide 25 (22-30) mmol/L BUN 16 (7-17) mg/dL Creatinine 0.87 (0.52-1.04) mg/dL Glucose 94 (74-99) mg/dL Calcium 9.6 (8.4-10.2) mg/dL AST 25 (14-36) U/L ALT 24 (4-34) U/L Alkaline Phosphatase 82 (38-126) U/L Total Protein 7.2 (6.3-8.2) g/dL Albumin 4.4 (3.5-5.0) g/dL Current Medications Generic Name Dose Route Start Last Admin Trade Name Vincentq PRN Reason Stop Dose Admin Aspirin 325 mg 08/15/22 09:00 08/15/22 08:16 Aspirin 325 Mg Tab PO 325 mg DAILY ROCHELLE Administration Nitroglycerin 0.4 mg 08/14/22 21:24 Nitroglycerin Sl Tabs 0.4 Mg Tab SUBLINGUAL Q5M PRN Chest Pain Intake and Output 08/14/22 08/15/22 08/15/22 22:59 06:59 14:59 Intake Total 10 Balance 10 Intake: IV 10 Invasive Line 1 10 Other: Weight 75.07 kg 08/14/22 16:14 08/14/22 16:14
[2022-08-15 12:01] LABS: Chol/HDL Ratio 3.62 Ratio; LDL Cholesterol,Calculated 137.8 mg/dL (0.0-131.0)
--- NOTE | 2022-08-15 13:05 | CA ---
Stress Echo Report Luann Ruiz Age: 67 Gender: F : 1955 Exam Date: 08/15/2022 10:55 Exam Location: [facility] Ht (in): 60 Wt (lb): 164 Ordering Physician: Karo Mejía Referring Physician: [id number] Yoga Teacher: Aung Blanco Technologist Procedure CPT: Indication: CP, SOB ICD-9 Codes: Rhythm: Patient History: Chest pain Cardiac Medications: Medications in past 24 hours: Contrast: Stress Results Protocol: Rosalio Total dose(mL): Exercise Duration (min:sec): 3:[address] Depression (mm): Angina Score: Cloud Score: METS: 5.2 Resting HR: 92 Resting BP: 155 / 103 Peak HR: 148 Peak BP: 199 / 98 Max Predicted HR: 155 95 % Max Predicted HR Target HR: 132 Double Product: [id number] Stress Summary: The patient's target heart rate was achieved The hemodynamic response to exercise was normal BP Response: Reason for Termination: Reached target heart rate or work-load Cardiac Symptoms: Dyspnea ECG Analysis Resting ECG: Normal sinus rhythm, normal ECG Stress ECG: No abnormal ST/T wave changes with exercise Arrhythmia: Occasional PVCs Echo Analysis Resting Echo: Normal resting echocardiogram. Peak Echo Analysis: Normal wall thickening and motion MEASUREMENTS (Male/Female) Normal Values CONCLUSIONS No ECG evidence of ischemia with exercise. Normal treadmill stress echocardiogram. Dr. Colby King MD (Electronically Signed) Final Date: 15 August 2022 13:04
--- NOTE | 2022-08-15 13:38 | US ---
EXAMINATION TYPE: US carotid duplex BILAT DATE OF EXAM: 08/15/2022 COMPARISON: NONE CLINICAL INDICATION: Female, 67 years old with history of syncopal episode; SOB, HTN, dizziness TECHNIQUE: Carotid duplex ultrasound examination. Indirect Doppler criteria was utilized. FINDINGS: EXAM MEASUREMENTS: RIGHT: Peak Systolic Velocity (PSV) cm/sec ----- Right CCA: 65.6 ----- Right ICA: 101 ----- Right ECA: 79.9 ICA/CCA ratio: 1.54 RIGHT: End Diastole cm/sec ----- Right CCA: 22.1 ----- Right ICA: 40.3 ----- Right ECA: 18.2 LEFT: Peak Systolic Velocity (PSV) cm/sec ----- Left CCA: 71.5 ----- Left ICA: 78.6 ----- Left ECA: 67.7 ICA/CCA ratio: 1.10 LEFT: End Diastole cm/sec ----- Left CCA: 26.0 ----- Left ICA: 34.4 ----- Left ECA: 13.2 VERTEBRALS (direction of flow): Right Vertebral: Antegrade Left Vertebral: Antegrade Rhythm: Normal TOOLMAN NOTES: Mild plaque bilateral bifurcations. Tortuous vessels. no evidence of elevated velo cities IMPRESSION: 1. Mild atheromatous plaque at the carotid bifurcations without significant flow-limiting stenosis ba sed on velocities. Criteria for Assigning % of Stenosis / Diameter reduction (Estimation based on the indirect measurements of the internal carotid artery velocities (ICA PSV). 1. Normal (no stenosis)=ICA PSV < 125 cm/s: ratio < 2.0: ICA EDV<40 cm/s. 2. Less than 50% stenosis=ICA PSV < 125 cm/s: ratio < 2.0: ICA EDV<40 cm/s. 3. 50 to 69% stenosis=ICA PSV of 125 to 230 cm/s: ration 2.0 ? 4.0: ICA EDV 40-100 cm/s. 4. Greater than 70% stenosis to near occlusion= ICA PSV > 230 cm/s: ratio > 4.0: ICA EDV > 100 cm/s. 5. Near occlusion= ICA PSV velocities may be low or undetectable: variable ratio and ICA EDV. 6. Total occlusion=unable to detect flow.
[2022-08-15 16:09] VITALS: BP 133/86; PULSE 86; RESP 17; TEMP 98.2
== END 2022-08-15 16:17 | disposition home or self-care (01) ==
LOC: EC 15:46 → INTOOBSV 21:24 → 3SCARD 21:24
PROVIDERS: ADMIT Internal Medicine; ATTEND Internal Medicine
DX: I16.0 Hypertensive urgency (principal); R06.09 Other forms of dyspnea; R94.31 Abnormal electrocardiogram [ECG] [EKG]; I10 Essential (primary) hypertension; K21.9 Gastro-esophageal reflux disease without esophagitis; R00.0 Tachycardia, unspecified; R42 Dizziness and giddiness; R55 Syncope and collapse; R29.6 Repeated falls; E66.9 Obesity, unspecified; Z68.32 Body mass index [BMI] 32.0-32.9, adult; Z79.899 Other long term (current) drug therapy; Z90.49 Acquired absence of other specified parts of digestive tract; Z90.710 Acquired absence of both cervix and uterus; Z98.891 History of uterine scar from previous surgery; Z98.890 Other specified postprocedural states; Z80.9 Family history of malignant neoplasm, unspecified
CPT/HCPCS: 96374; 96375; 99285; 51798; 36415; 93005 ×2; 93306; 93351; 85379; 80061; 80053; 84443; 83735; 84484 ×2; 85025; 85610; 85730; 81003; 71046; 93880; 71275; G0378; J2060; J0360; Q9967

== ENCOUNTER → 2024-04-05 | Outpatient (CLI) | payer MEDICARE ==
--- NOTE | 2024-04-05 11:47 | FL ---
EXAMINATION TYPE: FL barium swallow DATE OF EXAM: 04/05/2024 CLINICAL HISTORY: Bloating, nausea, and difficulty breathing for 2 years. Hiatal hernia? Dysphagia pe r order. TECHNIQUE: A double contrast esophagram is performed utilizing air and barium. A total of 24 second s of fluoroscopic time was utilized during procedure and 34 images obtained. Total DAP = 661.99 COMPARISON: CT chests August 14, 2022 FINDINGS: The esophagus shows normal motility and emptying into the stomach. No evidence of fixed hi atal hernia or stricture noted. No intraluminal mass. No significant gastroesophageal reflux was seen during real time performance of this study. Cholecystectomy clips are redemonstrated. IMPRESSION: No significant abnormality is seen to account for patient's symptoms. [facility], , 04/05/2024 11:45 AM
== END | disposition home or self-care (01) ==
LOC: RADFLMAIN 10:03
PROVIDERS: ATTEND Family Medicine
DX: K21.9 Gastro-esophageal reflux disease without esophagitis (principal); R13.10 Dysphagia, unspecified
CPT/HCPCS: 74220